=== PATIENT | male | born 1955 | race Caucasian/White ===

== ENCOUNTER 2020-11-16 04:40 | Inpatient (IN) ==
[2020-11-16 05:27] LABS: Basophils % 0.2 % (0.0-0.8); Eosinophils % 0.2 % (0.00-10.9); Hematocrit 42.2 VOL% (42.0-52.0); Hemoglobin 13.6 GM/DL (14.0-18.0); Immature Granulocytes % 0.6 %; Immature Granulocytes Absolute 0.04 #; Lymphocytes # 1.3 10*3/uL (1.4-4.0); Lymphocytes % 19.3 % (21.2-54.2); Mean Corpuscular HGB Conc 32.2 GM/DL (32-36); Mean Corpuscular Volume 89.2 FL (87-102); Mean Platelet Volume 10.4 FL (9.6-12.0); Monocytes % 10.4 % (1.7-12.7); Neutrophils % 69.3 % (38.7-73.9); Platelet Count 180 T/CUMM (130-400); Red Blood Count 4.73 MC/CUMM (3.8-5.5); Red Cell Distribution Width 13.1 % (9.3-17.3); White Blood Count 6.5 T/CUMM (4-12)
[2020-11-16] MEDS ORDERED: GLUCAGON 1 MG VIAL IM PRN (05:36)
[2020-11-16] MEDS ORDERED: ACETAMINOPHEN 325 MG TABLET PO PRN (05:36)
[2020-11-16] MEDS ORDERED: hydrALAZINE 20 MG/1 ML VIAL IV PRN (05:36)
[2020-11-16] MEDS ORDERED: ONDANSETRON 4 MG/2 ML VIAL IV PRN (05:36)
[2020-11-16] MEDS ORDERED: NICOTINE 21 MG/24 HR PATCH TRANSDERM PRN (05:36)
[2020-11-16] MEDS ORDERED: AZITHROMYCIN INJ 500 MG in SODIUM CHLORIDE 0.9% 250 ML IV ONE (05:36)
[2020-11-16] MEDS ORDERED: DEXTROSE 50% 25 GM/50 ML VIAL IV PRN (05:36)
[2020-11-16] MEDS ORDERED: guaiFENesin/DM ER 600-30 MG TABLET PO PRN (05:36)
[2020-11-16] MEDS ORDERED: diphenhydrAMINE CAP 25 MG CAPSULE PO PRN (05:36)
[2020-11-16] MEDS ORDERED: MORPHINE 2 MG/1 ML SYRINGE IV PRN (05:36)
[2020-11-16 05:45] LABS: Albumin 2.9 G/DL (3.4-5.0); Bilirubin,Total 0.4 MG/DL (0.20-1.00); Calcium 8.3 MG/DL (8.5-10.1); Osmolality,Calculated 272.2 MOS/KG (273-304); Potassium 3.8 MMOL/L (3.5-5.1); Total Protein 7.3 G/DL (6.4-8.2)
[2020-11-16 05:51] LABS: ABG Base Excess -0.6 MMOL/L (-2.5-2.5); ABG HCO3 23.9 MMOL/L (20-26); ABG Oxygen Saturation 97.2 % (95-100); ABG PCO2 34.8 MM HG (35-48); ABG PO2 95.9 MM HG (80-95); ABG TCO2 19.9 MMOL/L (23-27)
[2020-11-16] MEDS ORDERED: oxyCODONE/ACETAMINOPHEN 5-325 MG TABLET PO PRN (05:53)
[2020-11-16] MEDS: SODIUM CHLORIDE 0.9% 1,000 ML IV SCH (06:08)
[2020-11-16] MEDS: DEXAMETHASONE 4 MG/1 ML VIAL IV SCH (09:25)
[2020-11-16] MEDS: CHOLECALCIFEROL 1,000 UNIT TABLET PO SCH (09:26)
[2020-11-16] MEDS: FAMOTIDINE 20 MG TABLET PO SCH ×2 (09:26→20:30)
[2020-11-16] MEDS: ASCORBIC ACID 500 MG TABLET PO SCH ×2 (09:26→20:30)
[2020-11-16] MEDS: ZINC GLUCONATE 50 MG TABLET PO SCH (09:27)
[2020-11-16] MEDS: CETIRIZINE 10 MG TABLET PO SCH (09:27)
[2020-11-16] MEDS: IVERMECTIN 3 MG TABLET PO SCH (09:36)
[2020-11-16] MEDS ORDERED: REMDESIVIR 200 MG in SODIUM CHLORIDE 0.9% 210 ML IV ONE (10:00)
[2020-11-16] MEDS ORDERED: PNEUMOCOCCAL VACCINE (13 VALENT) 0.5 ML SYRINGE IM ONE (10:01)
[2020-11-16] MEDS: ENOXAPARIN 100 MG/ML SYRINGE SUBCUT SCH (16:22)
[2020-11-16] MEDS: oxyCODONE/ACETAMINOPHEN 5-325 MG TABLET PO PRN ×2 (16:29→22:25)
[2020-11-16] MEDS: CALCIUM CARBONATE CHEW 500 MG TABLET PO PRN (22:41)
[2020-11-17] MEDS: SODIUM CHLORIDE 0.9% 1,000 ML IV SCH (00:58)
[2020-11-17] MEDS: ENOXAPARIN 100 MG/ML SYRINGE SUBCUT SCH ×2 (03:42→13:47)
[2020-11-17] MEDS: oxyCODONE/ACETAMINOPHEN 5-325 MG TABLET PO PRN ×2 (06:20→18:14)
[2020-11-17] MEDS ORDERED: REMDESIVIR 100 MG in SODIUM CHLORIDE 0.9% 100 ML IV SCH (09:00)
[2020-11-17] MEDS: FAMOTIDINE 20 MG TABLET PO SCH ×2 (09:01→21:00)
[2020-11-17] MEDS: CETIRIZINE 10 MG TABLET PO SCH (09:01)
[2020-11-17] MEDS: CHOLECALCIFEROL 1,000 UNIT TABLET PO SCH (09:01)
[2020-11-17] MEDS: DEXAMETHASONE 4 MG/1 ML VIAL IV SCH (09:01)
[2020-11-17] MEDS: ASCORBIC ACID 500 MG TABLET PO SCH ×2 (09:02→21:00)
[2020-11-17] MEDS: AZITHROMYCIN 250 MG TABLET PO SCH (09:02)
[2020-11-17] MEDS: CALCIUM CARBONATE CHEW 500 MG TABLET PO PRN ×2 (09:03→22:05)
[2020-11-17 09:10] LABS: Basophils % 0.1 % (0.0-0.8); Hematocrit 41.6 VOL% (42.0-52.0); Hemoglobin 13.4 GM/DL (14.0-18.0); Immature Granulocytes % 0.7 %; Immature Granulocytes Absolute 0.07 #; Lymphocytes # 1.4 10*3/uL (1.4-4.0); Lymphocytes % 14.7 % (21.2-54.2); Mean Corpuscular HGB Conc 32.2 GM/DL (32-36); Mean Corpuscular Volume 88.9 FL (87-102); Mean Platelet Volume 10.7 FL (9.6-12.0); Monocytes % 4.2 % (1.7-12.7); Neutrophils % 80.3 % (38.7-73.9); Platelet Count 195 T/CUMM (130-400); Red Blood Count 4.68 MC/CUMM (3.8-5.5); Red Cell Distribution Width 13.1 % (9.3-17.3); White Blood Count 9.8 T/CUMM (4-12)
[2020-11-17] MEDS: IVERMECTIN 3 MG TABLET PO SCH (09:15)
[2020-11-17] MEDS: ZINC GLUCONATE 50 MG TABLET PO SCH (09:15)
[2020-11-17 09:31] LABS: Albumin 2.9 G/DL (3.4-5.0); Bilirubin,Total 0.5 MG/DL (0.20-1.00); Calcium 8.9 MG/DL (8.5-10.1); Osmolality,Calculated 279.7 MOS/KG (273-304); Potassium 3.4 MMOL/L (3.5-5.1); Total Protein 7.6 G/DL (6.4-8.2)
[2020-11-17] MEDS ORDERED: POTASSIUM CHLORIDE 20 MEQ TABLET PO PRN (14:58)
[2020-11-17] MEDS: DULoxetine 30 MG CAPSULE PO SCH (16:31)
[2020-11-17] MEDS: LISINOPRIL/HCTZ 20-12.5 MG TABLET PO SCH (16:31)
[2020-11-17] MEDS: METOPROLOL SUCCINATE XL 25 MG TABLET PO SCH (16:31)
[2020-11-18] MEDS: oxyCODONE/ACETAMINOPHEN 5-325 MG TABLET PO PRN ×3 (00:05→11:49)
[2020-11-18] MEDS: ENOXAPARIN 100 MG/ML SYRINGE SUBCUT SCH ×2 (02:00→16:47)
[2020-11-18 06:05] LABS: Alanine Aminotransferase 101 U/L (16-61); Albumin 2.9 G/DL (3.4-5.0); Alkaline Phosphatase 96 U/L (45-117); Aspartate Amino Transferase 77 U/L (0-37); Bilirubin,Direct < 0.100 MG/DL (0.0-0.20); Bilirubin,Indirect 0.3 MG/DL (0.0-1.0); Total Protein 6.9 G/DL (6.4-8.2)
[2020-11-18] MEDS: METOPROLOL SUCCINATE XL 25 MG TABLET PO SCH (09:50)
[2020-11-18] MEDS: LISINOPRIL/HCTZ 20-12.5 MG TABLET PO SCH (09:50)
[2020-11-18] MEDS: IVERMECTIN 3 MG TABLET PO SCH (09:50)
[2020-11-18] MEDS: CHOLECALCIFEROL 1,000 UNIT TABLET PO SCH (09:50)
[2020-11-18] MEDS: FAMOTIDINE 20 MG TABLET PO SCH (09:50)
[2020-11-18] MEDS: DEXAMETHASONE 4 MG/1 ML VIAL IV SCH (09:51)
[2020-11-18] MEDS: CETIRIZINE 10 MG TABLET PO SCH (09:51)
[2020-11-18] MEDS: ASCORBIC ACID 500 MG TABLET PO SCH (09:51)
[2020-11-18] MEDS: ZINC GLUCONATE 50 MG TABLET PO SCH (09:51)
[2020-11-18] MEDS: DULoxetine 30 MG CAPSULE PO SCH (09:51)
[2020-11-18] MEDS: AZITHROMYCIN 250 MG TABLET PO SCH (09:51)
[2020-11-18] MEDS: CALCIUM CARBONATE CHEW 500 MG TABLET PO PRN (11:49)
[2020-11-18 16:58] VITALS: BP 88/51
== END 2020-11-18 18:15 | disposition home or self-care (01) | DRG 177 ==
LOC: N.ED 04:40 → N.EDINP 05:36 → SUATTDRO 05:36 → N.2E 06:38
PROVIDERS: ADMIT Internal Medicine; ATTEND Internal Medicine